=== PATIENT | male | born 1970 | race Caucasian/White ===

== ENCOUNTER → 2018-02-17 13:02 | Outpatient (CLI) | payer OTHER, SELFPAY ==
[2018-02-17 15:37] LABS: Cholesterol 192 mg/dL (140-199); HDL Cholesterol 49 mg/dL (40-60); LDL Cholesterol Calculated 124 mg/dL (<100); Triglycerides 95 mg/dL (35-150)
== END ==
PROVIDERS: PCP Family Medicine; Visit Provider Family Medicine
DX: E78.5 Hyperlipidemia, unspecified (principal)
CPT/HCPCS: 36415; 80061

== ENCOUNTER 2020-12-04 10:49 | Emergency (ER) | payer OTHER, SELFPAY ==
[2020-12-04 10:57] VITALS: BP 118/73; PULSE 88; RESP 18; TEMP 37.1; O2SAT 97; BMI 26.5
[2020-12-04 11:01] VITALS: PULSE 90
--- NOTE | 2020-12-04 11:04 | ED_ITS ---
HPI - Extremity Problem General Chief complaint: Extremity Problem,Nontraumatic Stated complaint: right ankle pain Time Seen by Provider: 12/04/20 11:03 Source: patient Mode of arrival: Ambulatory Limitations: no limitations History of Present Illness HPI Narrative: This is a 50-year-old male comes emergency department with complaint of right ankle pain that is sudden onset starting yesterday and continuing today. Patient states quite painful in the ankle itself end of on the lateral and extending to the medial side. He states it is worse with weight-bearing. He did not have any recent trauma or injury. He does have a very remote history approximately 20 years ago of having fracture with surgical repair. Patient states he has not appreciated new numbness, tingling or weakness. He has significant discomfort with trying to plantar and dorsiflex his foot. Patient has not appreciated in any new color changes such as erythema, pallor or cyanosis. He states the pain is localized to his ankle it does not extend up his leg into his calf. He has had back pain in the past with some radiation down his leg but is not having any symptoms currently. He states this feels different from those prior episodes. Patient did have a history of a traumatic eye injury with a nail to the eye and required surgery at [facility]. He is on medications for his eye but does not normally take any medications regularly. Patient did try some narcotic pain medication left over from his surgery which was helpful. Patient denies any other surgical history. He does not have any history of gout. Patient denies any allergies to medications. He does not use tobacco, occasional alcohol, no recreational drugs. Patient does not currently have a primary care that he follows with regularly although he has seen Dr. Lincoln once before. Related Data Previous Rx's Medication Instructions Recorded oxycodone 5 mg PO Q6H PRN #14 tab 12/04/20 Allergies Allergy/AdvReac Type Severity Reaction Status Date / Time No Known Drug Allergies Allergy Verified 04/05/18 19:17 Review of Systems Review of Systems ROS Unobtainable: All systems reviewed & are unremarkable except as noted in HPI and below Patient History Social History Smoking Status: Never smoker alcohol intake: current substance use type: does not use caffeine: Yes (4-6 cups/cans per day) Type(s) of exercise: occasional exercise Smoking Status: Never smoker alcohol intake frequency: other Alcohol type: beer Substance Use Type: does not use Exam Narrative Exam Narrative: GEN: well nourished, male, alert and oriented x 3, patient appears to be in mild distress. HEENT: Atraumatic, pupils are equal round reactive to light, extraocular movements are intact. Patient is wearing sunglasses. HEART: Regular rate and rhythm without murmur, clicks, rubs. LUNGS:Lungs clear to auscultation, no wheezes, rales, crackles, chest moves symmetrically ABD:bowel sounds normal, soft, non-tender, no guarding, rebound, rigidity, no masses noted, no hepatosplenomegaly MSCL: Non-tender to direct palpation, no muscle atrophy, patient does have full range of motion. There is no warmth, erythema or skin changes appreciated. No swelling or edema. Patient does have a healed incision on the medial malleoli consistent with prior remote surgical fixation. Patient does not have any crepitus. No deformity. Patient is neurovascular intact with 2+ dorsalis pedis. Sensation all 5 toes and cap refill less than 2 seconds. NEURO:CN 2-12 intact, sensation normal. SKIN: Initial Vital Signs Initial Vital Signs: Vital Signs Temperature 98.7 F 12/04/20 10:57 Pulse Rate 88 12/04/20 10:57 Respiratory Rate 18 12/04/20 10:57 Blood Pressure 118/73 12/04/20 10:57 Pulse Oximetry 97 12/04/20 10:57 Course Orders Ordered: ED Orders 12/04/20 11:43 Basic Metabolic Panel Stat C-Reactive Protein Quant Stat Complete Blood Count AUTO DIFF Stat Erythrocyte Sedimentation Rate Stat Uric Acid Stat Discontinued Medications Ketorolac Tromethamine (Ketorolac 30 Mg/Ml Vial) 30 mg IV NOW ONE Stop: 12/04/20 13:05 Last Admin: 12/04/20 13:10 Dose: 30 mg Documented by: DAVID Reevaluation(s) Reevaluation #1: Discussed patient's findings today. Also discussed orthopedic surgeries recommendations. Patient and family were both at bedside and we discussed return precautions. Plan for NSAIDs, Tylenol as needed and oxycodone as needed for pain control. Patient also aware of reasons to return and differential. Time: 13:01 Consultations Consultation #1: Dr. Chester, does not recommend starting antibiotics at this time. He recommends NSAIDs and Tylenol. We did review his x-rays as well as his lab findings with an elevated CRP of 1.3 and ESR of 17. White count. Patient's did not himself appreciate any redness or swelling today and I did not appreciate any particular. Uric acid was negative. He will have the patient follow-up with him in the office this week and patient is to call for an appointment. Time: 12:31 Vital Signs Vital signs: Vital Signs - 8 hr 12/04/20 13:36 Pulse Rate 78 Respiratory Rate 14 Blood Pressure 111/76 Pulse Oximetry 97 MDM - Extremity (Nontraumatic) Lab Data Attestation: I reviewed the patient's lab results. Result diagrams: 12/04/20 11:43 12/04/20 11:43 Labs: Lab Results 12/04/20 12/04/20 Range/Units 11:43 11:43 WBC 8.1 (4.5-11.0) X10^3/uL RBC 5.15 (4.5-5.9) X10^6/uL Hgb 16.2 (13.5-17.5) g/dL Hct 46.1 (41-53) % MCV 89.5 (80-100) fL MCH 31.5 (26-34) PG MCHC 35.2 (30-36) % RDW 12.7 (11.6-14.8) % Plt Count 243 (150-400) X10^3/uL Neut % (Auto) 66.8 (50-75) % Lymph % (Auto) 22.7 L (25-40) % Sanders % (Auto) 8.8 (3-14) % Eos % (Auto) 1.3 L (2-4) % Baso % (Auto) 0.4 (0-2) % Neut # (Auto) 5400 (1185-0942) /uL Lymph # (Auto) 1800 (6972-9887) /uL Sanders # (Auto) 700 (0-900) /uL Eos # (Auto) 100 (0-450) /uL Baso # (Auto) 0 (0-100) /uL ESR 17 H (0-15) MM/HR Sodium 137 (137-145) mmol/L Potassium 4.2 (3.4-5.1) mmol/L Chloride 98 (98-107) mmol/L Carbon Dioxide 29 (22-32) mmol/L BUN 14 (9-20) mg/dL Creatinine 1.01 (0.66-1.25) mg/dL Estimated GFR > 60.0 (>60) mL/min BUN/Creatinine Ratio 13.9 (6-22) Glucose 93 (70-100) mg/dL Uric Acid 5.5 (3.5-8.5) mg/dL Calcium 10.1 (8.4-10.2) mg/dL C-Reactive Protein 1.3 H (<1.0) mg/dL Imaging Data Extremity x-ray #1: Radiologist's Impression: [address] [id number] ReportSigned Patient: Delvis Angulo RMR#: [id number]: [id number]:[id number]/Sex: 50 / MDate of Service: 12/04/20Loc: EDAccession Number: [id number] Procedure: XR ankle RT min 3V Ordering Provider: Pauly Castellanos D.O. PROCEDURE: XR ANKLE RT MIN 3V INDICATIONS: acute pain, remote injury, sudden on sent no trauma, nl skin TECHNIQUE: 3 views of the ankle were acquired. COMPARISON: [facility], , ANKLE MIN 3VW (LT), 01/06/2015, 16:14. FINDINGS: Bones: Remote postsurgical changes with plain screw fixation of the mid to distal fibula as well as screw fixation of the distal tibia. No evidence of hardware complication. Corticated densities adjacent to the lateral and medial malleolus likely representing cycle of remote trauma. There is no acute displaced fracture. Irregularity of the tibial fibular syndesmosis likely representing prior injury. There is advanced degenerative changes of the ankle. Alignment is normal. Soft tissues: Soft tissue calcification within the soft tissues posterior to the distal tibia likely represents cycle of prior trauma. There is a small enthesophyte at the Achilles insertion. IMPRESSION: Remote posttraumatic changes of the ankle with surgical hardware. No evidence of complication. Advanced degenerative changes of the ankle. Achilles insertional enthesophyte. Dictated by: Rashel Huitron D.O. on 12/04/2020 at 10:39 Approved by: Rashel Huitron D.O. on 12/04/2020 at 10:43 MDM Narrative Medical decision making narrative: This is a 50-year-old male who comes in with atraumatic right ankle over the talus and lateral malleoli with no obvious skin changes appreciated on my exam and which patient states he appreciated any changes today. Patient's x-ray shows hardware intact without any clear changes. Patient's labs show a normal white count but elevated CRP and ESR. Patient does not appear to be clearly infected. Uric acid is also negative. Patient and I discussed in his imaging and findings were reviewed with Orthopedic surgery. They asked the patient follow-up with them this week they asked we do not start any antibiotics at this time. Patient was given return precautions. Plan for NSAIDs, Tylenol and narcotic pain medication for breakthrough. Patient is aware of possible differential potential for infection as well. Discharge Plan Departure Patient Disposition: Home Clinical Impression: Ankle pain, right Instructions: DI for Ankle Pain Activity Restrictions/Additional Instructions: Follow up with orthopedic surgery this week. Call for an appointment in the morning. I spoke with Dr. Chester today about your case. You may take Tylenol up to a 1000 mg every 8 hours as needed for pain. Take ibuprofen up to 800 mg every 8 hours as needed for pain if not contraindicated from your recent eye injury and surgery. Take oxycodone 1 tablet every 6-8 hours as needed for pain. This medication can make you sleepy do not drive, perform hazardous activities or make any major decisions while taking it. This medication will make you constipated, take a stool softener 1-2 times daily until stools are soft and regular. Prescription to [facility]. Return to the emergency department for fevers greater 100.4 F, if your ankle becomes red, hot or swollen or his rapidly worsening, if you have loss of sensation or new numbness or tingling, if you cannot move her foot secondary to weakness or if you are having pain radiating up your leg with swelling of the leg or new discoloration or other new or concerning symptoms. Prescriptions: New oxycodone 5 mg tablet 5 mg PO Q6H PRN (Reason: pain) Qty: 14 RF: 0 Referrals: Dexter Mcleod MD [Primary Care Provider] - Jerrell Chester MD [Physician] -
--- NOTE | 2020-12-04 11:09 | PC.NURSE ---
patient has ankle surgery 20 years ago and never had any issues with his ankle. He was walking yesterday and today developed pain in the back of his ankle. He states that it's an 11/10 pain until he took his RX hydrocodone. at rest the pain is 3/10. with ambulation it's back at an 11. His foot is warm and pink with cap refill less than 2 seconds but not as fast as his opposite foot. He has same sensation in both feet. he also has decresed ROM in his right foot but because it's painful. He can flex and extend right foot.
--- NOTE | 2020-12-04 11:16 | DI.RAD.S_ITS ---
PROCEDURE: XR ANKLE RT MIN 3V INDICATIONS: acute pain, remote injury, sudden on sent no trauma, nl skin TECHNIQUE: 3 views of the ankle were acquired. COMPARISON: [facility], , ANKLE MIN 3VW (LT), 01/06/2015, 16:14. FINDINGS: Bones: Remote postsurgical changes with plain screw fixation of the mid to distal fibula as well as screw fixation of the distal tibia. No evidence of hardware complication. Corticated densities adjacent to the lateral and medial malleolus likely representing cycle of remote trauma. There is no acute displaced fracture. Irregularity of the tibial fibular syndesmosis likely representing prior injury. There is advanced degenerative changes of the ankle. Alignment is normal. Soft tissues: Soft tissue calcification within the soft tissues posterior to the distal tibia likely represents cycle of prior trauma. There is a small enthesophyte at the Achilles insertion. IMPRESSION: Remote posttraumatic changes of the ankle with surgical hardware. No evidence of complication. Advanced degenerative changes of the ankle. Achilles insertional enthesophyte. Dictated by: Rashel Huitron D.O. on 12/04/2020 at 10:39 Approved by: Rashel Huitron D.O. on 12/04/2020 at 10:43
[2020-12-04 11:49] LABS: Add Manual Diff / Slide Review NO; Basophils Absolute Auto 0 /uL (0-100); Basophils Percent Auto 0.4 % (0-2); Eosinophils Absolute Auto 100 /uL (0-450); Eosinophils Percent Auto 1.3 % (2-4); Hematocrit 46.1 % (41-53); Hemoglobin 16.2 g/dL (13.5-17.5); Lymphocytes Absolute Auto 1800 /uL (1100-4500); Lymphocytes Percent Auto 22.7 % (25-40); Mean Corpuscular HGB Conc 35.2 % (30-36); Mean Corpuscular Hemoglobin 31.5 PG (26-34); Mean Corpuscular Volume 89.5 fL (80-100); Monocytes Absolute Auto 700 /uL (0-900); Monocytes Percent Auto 8.8 % (3-14); Neutrophils Absolute Auto 5400 /uL (1500-7000); Neutrophils Percent Auto 66.8 % (50-75); Platelet Count 243 X10^3/uL (150-400); Red Blood Cell Count 5.15 X10^6/uL (4.5-5.9); Red Cell Distribution Width 12.7 % (11.6-14.8); White Blood Cell Count 8.1 X10^3/uL (4.5-11.0)
[2020-12-04 12:08] LABS: BUN Creatinine Ratio 13.9 (6-22); Blood Urea Nitrogen 14 mg/dL (9-20); C-Reactive Protein Quant 1.3 mg/dL (<1.0); Calcium 10.1 mg/dL (8.4-10.2); Carbon Dioxide 29 mmol/L (22-32); Chloride 98 mmol/L (98-107); Estimated Glomerular Filt Rate > 60.0 mL/min (>60); Glucose 93 mg/dL (70-100); HEMOLYSIS < 15 (0-50); Potassium 4.2 mmol/L (3.4-5.1); Sodium 137 mmol/L (137-145); Uric Acid 5.5 mg/dL (3.5-8.5)
[2020-12-04 12:21] LABS: Erythrocyte Sedimentation Rate 17 MM/HR (0-15)
[2020-12-04] MEDS: KETOROLAC 30 MG/ML VIAL IV (13:10)
[2020-12-04 13:36] VITALS: BP 111/76; PULSE 78; RESP 14; O2SAT 97
== END 2020-12-04 13:38 | disposition home or self-care (01) ==
PROVIDERS: Emergency Provider Emergency Medicine; PCP Family Medicine
DX: M25.571 Pain in right ankle and joints of right foot (principal)
CPT/HCPCS: 36415; 73610; 80048; 84550; 85025; 85651; 86140; 96374; 99284; J1885

== ENCOUNTER → 2020-12-06 15:12 | Outpatient (CLI) | payer OTHER, SELFPAY ==
[2020-12-06 17:00] LABS: Erythrocyte Sedimentation Rate 37 MM/HR (0-15)
[2020-12-06 17:18] LABS: C-Reactive Protein Quant 3.5 mg/dL (<1.0); Uric Acid 5.8 mg/dL (3.5-8.5)
== END ==
PROVIDERS: Referring Provider Orthopaedic Surgery Adult Reconstructive Orthopaedic Surgery; Visit Provider Orthopaedic Surgery Adult Reconstructive Orthopaedic Surgery
DX: M25.571 Pain in right ankle and joints of right foot (principal)
CPT/HCPCS: 36415; 84550; 85651; 86140

== ENCOUNTER → 2023-08-05 11:49 | Outpatient (CLI) | payer BC, SELFPAY ==
--- NOTE | 2023-08-05 11:52 | DI.RAD.S_ITS ---
PROCEDURE: XR FINGER LT MIN 2V INDICATIONS: injury TECHNIQUE: AP hand, 2 views of the 4th finger(s) acquired. COMPARISON: None. FINDINGS: Bones: There is a mildly displaced fracture involving the distal aspect of the distal phalanx of the 4th finger, with mild comminution. No intra-articular involvement is seen. Soft tissues: No suspicious soft tissue calcifications. IMPRESSION: Distal 4th finger fracture. Dictated by: José Miguel Vicente M.D. on 08/05/2023 at 11:56 Approved by: José Miguel Vicente M.D. on 08/05/2023 at 11:57
== END ==
PROVIDERS: Referring Provider Physician Assistant; Visit Provider Physician Assistant
DX: S62.635A Displaced fracture of distal phalanx of left ring finger, initial encounter for closed fracture (principal); M79.645 Pain in left finger(s)
CPT/HCPCS: 73140